=== PATIENT | male | born 1950 | race Two or more races ===

== ENCOUNTER 2025-07-19 12:31 | Emergency (ER) | payer BC, OTHER ==
[~2025-07-19] VITALS: Ht 180.3 cm; Wt 68.9 kg
[2025-07-19] MEDS ORDERED: SYNTHROID75 MCG (12:59)
[2025-07-19] MEDS ORDERED: ATORVASTATIN CA20 MG (12:59)
[2025-07-19] MEDS ORDERED: ZESTRIL5 MG (12:59)
[2025-07-19] MEDS ORDERED: [UNRECOGNIZED DRUG - OTHER] (13:00)
[2025-07-19] MEDS ORDERED: DIPHENHYDRAMINE HCL 50 MG/ML VIAL 1ML ONE (14:39)
[2025-07-19] MEDS ORDERED: METHYLPREDNISOLONE SOD SUCC 125 MG VIAL ONE (14:40)
[2025-07-19] MEDS ORDERED: METHYLPREDNISOLONE SOD SUCC 125 MG VIAL IV ONE (14:45)
[2025-07-19] MEDS ORDERED: DIPHENHYDRAMINE HCL 50 MG/ML VIAL 1ML IV ONE (14:45)
[2025-07-19 15:28] LABS: BASO % 0.8 % (0.1-1.2); EOS # 0.51 (0.04-0.54); EOS % 6.8 % (0.7-7.0); LYMPH # 1.85 (1.18-3.74); LYMPH % 24.7 % (19.3-53.1); MEAN PLATELET VOLUME 9.70 fl (9.4-12.4); MONO # 0.58 (0.24-0.82); MONO % 7.8 % (4.7-12.5); NEUT # 4.46 (1.56-6.13); NEUT % 59.6 % (34.0-71.1); RED CELL DISTRIBUTION WIDTH 14.8 % (11.6-14.4)
== END 2025-07-19 16:27 | disposition home or self-care (01) ==
LOC: ER 12:31
PROVIDERS: General Practice
DX: T78.1XXA Other adverse food reactions, not elsewhere classified, initial encounter (principal); X58.XXXA Exposure to other specified factors, initial encounter; R22.0 Localized swelling, mass and lump, head; I10 Essential (primary) hypertension; E03.9 Hypothyroidism, unspecified